=== PATIENT | female | born 1965 | race Caucasian/White ===

== ENCOUNTER 2017-01-11 09:50 | Inpatient (IN) | payer BC, OTHER ==
[2017-01-08 18:17] VITALS: BMI 25.1
[2017-01-11] VITALS (25 sets, daily range): BP systolic 84–129; BP diastolic 51–78; PULSE 65–84; RESP 12–26; Ht 165.1 cm; Wt 68.0 kg
[~2017-01-11] VITALS: Ht 165.1 cm; Wt 68.0 kg
[~2017-01-11 09:50] MED LIST: PROPOFOL 200 MG INJ ONE
[2017-01-11] MEDS ORDERED: BUPR300T48 PO (10:23)
[2017-01-11] MEDS ORDERED: LAMO100T83 PO (10:23)
[2017-01-11] MEDS ORDERED: GABA-526 PO (10:24)
--- NOTE | 2017-01-11 11:09 | RADRPT ---
PROCEDURE: XR Chest. CLINICAL INDICATION: 51-year-old female for preop chest x-ray. TECHNIQUE: Single frontal view of the chest was obtained COMPARISON: No. FINDINGS: There is increased density of the superior lateral chest leyva possibly the result of breast implant s. Clinical correlation needed. The bony elements are normal. The cardiomediastinal silhouette an d hilar structures are normal. The pulmonary vasculature is There is a left-sided aorta. The lungs are clear. The costophrenic angles are normal. IMPRESSION: 1. There is no evidence of active cardiopulmonary disease. RPTAT:AAJJ Physician Gurjit Date Time Electronically viewed and signed by Physician Gurjit on 01/11/2017 11:09 ANGELICA/
[2017-01-11 11:28] LABS: ADD SCAN DIFF NO
[2017-01-11 11:36] LABS: BASOPHILS % 0.3 % (0.0-2.0); EOSINOPHILS # 0.1 10^3/ul (0.0-0.5); EOSINOPHILS % 1.4 % (0.0-7.0); HEMATOCRIT 38.7 % (37.0-47.0); LYMPHOCYTES # 0.9 10^3/ul (0.8-2.9); LYMPHOCYTES % 14.5 % (15.0-51.0); MEAN CORPUSCULAR HEMOGLOBIN 32.5 pg (29.0-33.0); MEAN CORPUSCULAR HGB CONC 33.6 g/dl (32.0-37.0); MEAN CORPUSCULAR VOLUME 96.8 fl (82.0-101.0); MEAN PLATELET VOLUME 8.5 fl (7.4-10.4); MONOCYTE # 0.4 10^3/ul (0.3-0.9); MONOCYTES % 6.2 % (0.0-11.0); NEUTROPHILS % 77.3 % (39.0-77.0); PLATELET COUNT 179 10^3/UL (140-415); RED CELL DISTRIBUTION WIDTH 12.5 % (11.5-14.5); WHITE BLOOD COUNT 6.4 10^3/ul (4.8-10.8)
[2017-01-11 11:43] LABS: INR 1.05; PROTIME 13.7 Sec (12.2-14.2); PT RATIO 1.1
[2017-01-11 11:44] LABS: PARTIAL THROMBOPLASTIN TIME 29.1 Sec (25.0-35.0)
[2017-01-11 11:51] LABS: CALCIUM 9.4 mg/dl (8.4-10.2); CREATININE 0.72 mg/dl (0.44-1.00); POTASSIUM 4.4 mmol/L (3.5-5.1)
[2017-01-11] MEDS: LACTATED RINGER'S 1,000 ML IV SCH (12:30)
[2017-01-11] MEDS ORDERED: MIDAZOLAM 1 MG/ML 2 ML INJ ONE (12:38)
--- NOTE | 2017-01-11 12:55 | HPN ---
Date/Time of Note Date/Time of Note DATE: 01/11/17 TIME: 12:54 Interval H&P Admission Note Pt. seen H&P reviewed: No system changes (Reviewed plan with patient and will continue with plan for left subtalar joint arthrodesis with iliac supriya autograft and allograft, open vs arthroscopic) ADOLFO YE MD Jan 11, 2017 12:55
[2017-01-11] MEDS ORDERED: DIPHENHYDRAMINE 25 MG CAP PO PRN (13:00)
[2017-01-11] MEDS: OXYCODONE/ACETAMINOPHEN (10/325) TAB PO SCH ×3 (13:00→21:16)
[2017-01-11] MEDS ORDERED: CEFAZOLIN 1 GM INJ IV SCH (13:00)
[2017-01-11] MEDS ORDERED: ONDANSETRON 4 MG INJ IV PRN ×2 (13:00→16:00)
--- NOTE | 2017-01-11 13:14 | RADRPT ---
Vent Rate: 67 bpm RR Interval: 0 msec RI Interval: 156 msec QRS Duration: 94 msec QT Interval: 400 msec QTC Interval: 422 msec P-R-T [place]: 60 - 38 - 48 degrees Normal sinus rhythm Normal ECG Electronically Signed By: Roe Patricio [id number]
[2017-01-11] MEDS ORDERED: ROPIVACAINE 0.5 % 30 ML VIAL ONE ×2 (13:24→13:59)
[2017-01-11] MEDS ORDERED: ROCURONIUM 50 MG INJ ONE ×2 (13:59→14:34)
[2017-01-11] MEDS ORDERED: METOCLOPRAMIDE 10 MG INJ ONE (13:59)
[2017-01-11] MEDS ORDERED: KETOROLAC 30 MG INJ ONE (13:59)
[2017-01-11] MEDS ORDERED: PROPOFOL 0 ML ONE (13:59)
[2017-01-11] MEDS: CEFAZOLIN 1 GM/50 ML (PMX) 50 ML IVPB SCH ×2 (14:00→22:16)
[2017-01-11] MEDS ORDERED: CEFAZOLIN 1 GM INJ ONE ×2 (14:18→17:58)
[2017-01-11] MEDS ORDERED: LIDOCAINE 2% (SDV) 5 ML INJ ONE (14:31)
[2017-01-11] MEDS ORDERED: HYDROmorphONE 2 MG/ML SYG ONE (14:32)
[2017-01-11] MEDS ORDERED: HYDROmorphONE (0.2 MG/ML) 10ML SYG IV PRN ×2 (16:00)
[2017-01-11] MEDS ORDERED: DIPHENHYDRAMINE 50 MG INJ IV PRN (16:00)
[2017-01-11] MEDS ORDERED: METOCLOPRAMIDE 10 MG INJ IV PRN (16:00)
[2017-01-11] MEDS ORDERED: OXYCODONE/ACETAMINOPHEN (5/325) TAB PO PRN ×2 (16:00)
[2017-01-11] MEDS ORDERED: MEPERIDINE 25 MG INJ IV PRN (16:00)
[2017-01-11] MEDS ORDERED: MEPERIDINE 100 MG INJ ONE (17:03)
[2017-01-11] MEDS ORDERED: NEOMYC/POLYMYX/BACIT 30 GM OINT ONE (18:11)
[2017-01-11] MEDS ORDERED: ROPIVACAINE 0.2% 20 ML VIAL ONE (18:23)
[2017-01-11] MEDS ORDERED: GLYCOPYRROLATE 0.4 MG INJ ONE (18:30)
[2017-01-11] MEDS ORDERED: NEOSTIGMINE 3 MG/3 ML SYRINGE ONE (18:30)
[2017-01-11] MEDS: HYDROmorphONE (0.2 MG/ML) 10ML SYG IV PRN ×2 (19:20→19:42)
[2017-01-11] MEDS: DOCUSATE SODIUM 100 MG CAP PO SCH (21:16)
--- NOTE | 2017-01-11 23:21 | RADRPT ---
PROCEDURE: Intraoperative fluoroscopy. CLINICAL INDICATION: Intraoperative fluoroscopy during left ankle surgery. TECHNIQUE: 7 spot intraoperative fluoroscopic images were provided. The images were reviewed on a high-resolution PACS workstation. COMPARISON: None available FINDINGS: Multiple spot intraoperative fluoroscopic views were provided during left ankle surgery. The images demonstrate placement of calcaneal cortical screws traversing the subtalar joints with tips in the talus. The total fluoroscopy time was 0.7 minutes. IMPRESSION: 1. Multiple spot intraoperative fluoroscopic views during left foot surgery were provided. 2. Please see operative report of the same day for further information. RPTAT: HGAS .Sreekanth Wright MD, MD Date Time Electronically viewed and signed by .Sreekanth Wright MD, on 01/11/2017 23:21 .S/
[2017-01-12] MEDS: OXYCODONE/ACETAMINOPHEN (10/325) TAB PO SCH ×4 (00:29→12:24)
[2017-01-12] MEDS: LACTATED RINGER'S 1,000 ML IV SCH ×2 (01:50→15:10)
[2017-01-12] MEDS: HYDROmorphONE 1 MG/ML SYG IV PRN ×3 (02:14→09:45)
[2017-01-12] MEDS: CEFAZOLIN 1 GM/50 ML (PMX) 50 ML IVPB SCH ×3 (06:28→22:00)
[2017-01-12] MEDS: DOCUSATE SODIUM 100 MG CAP PO SCH ×2 (08:25→20:40)
[2017-01-12 08:55] VITALS: BP 110/53; PULSE 65; RESP 20
[2017-01-12 08:56] VITALS: BP 110/53; RESP 20
--- NOTE | 2017-01-12 13:11 | PN ---
Date/Time of Note Date/Time of Note DATE: 01/12/17 TIME: 13:11 Assessment/Plan Lines/Catheters IV Catheter Type (from Nrsg): Peripheral IV Avalos in Place (from Nrsg): No Assessment/Plan Assessment/Plan POD #1 s/p Left subtalar arthrodesis with allograft - NWB to the LLE - PT to GT - PO and IV pain meds - likely dc home tomorrow - xarleto, scds, teds for dvt prophx E Dionne SHAW Subjective 24 Hr Interval Summary Pain is very high today. no f/c/n/v Constitutional: improved Feeding: advancing diet Pain Control: severe Exam/Review of Systems Vital Signs Vitals Vital Signs Date Time Temp Pulse Resp B/P Pulse Ox O2 Delivery O2 Flow Rate FiO2 01/13/17 07:00 98.9 80 18 126/71 95 01/12/17 08:55 Room Air 01/11/17 19:57 2.0 Intake and Output 01/13/17 01/13/17 01/14/17 15:00 23:00 07:00 Intake Total 1140 ml Output Total 800 ml Balance 340 ml Exam Constitutional: alert, oriented, well developed Musculoskeletal: other (LLE/ toes wiggle, splint intact, silt to m/l/d/p/fdws, cr brisk, toes wwp) Results Result Diagram: 01/11/17 1113 01/11/17 1113 ADOLFO YE MD Jan 12, 2017 13:11
[2017-01-12] MEDS ORDERED: HYDROmorphONE 2 MG/ML SYG IV STA (13:25)
[2017-01-12] MEDS ORDERED: oxyCODONE (CR) 20 MG TAB [oxyCONTIN] PO SCH (13:30)
[2017-01-12] MEDS: oxyCODONE (CR) 20 MG TAB [oxyCONTIN] PO SCH (16:56)
[2017-01-12] MEDS: RIVAROXABAN 10 MG TABLET PO SCH (18:23)
[2017-01-12] MEDS: oxyCODONE 15 MG TAB PO PRN ×2 (19:16→23:13)
[2017-01-12 19:55] VITALS: BP 128/65; RESP 20
[2017-01-12] MEDS ORDERED: DIAZEPAM 5 MG TAB PO PRN (20:30)
[2017-01-12] MEDS: HYDROmorphONE 2 MG/ML SYG IM PRN (20:40)
[2017-01-12] MEDS ORDERED: GABAPENTIN 100 MG CAP PO SCH (21:00)
[2017-01-13] MEDS: HYDROmorphONE 2 MG/ML SYG IM PRN ×3 (00:13→07:26)
[2017-01-13] MEDS: oxyCODONE (CR) 20 MG TAB [oxyCONTIN] PO SCH ×2 (01:39→09:31)
[2017-01-13] MEDS: LACTATED RINGER'S 1,000 ML IV SCH (04:30)
[2017-01-13] MEDS: CEFAZOLIN 1 GM/50 ML (PMX) 50 ML IVPB SCH (06:00)
[2017-01-13] MEDS: oxyCODONE 15 MG TAB PO PRN ×2 (06:12→11:02)
[2017-01-13 07:00] VITALS: BP 126/71; RESP 18
[2017-01-13] MEDS ORDERED: HYDROmorphONE 2 MG/ML SYG IM PRN (08:30)
[2017-01-13] MEDS: DOCUSATE SODIUM 100 MG CAP PO SCH (09:30)
[2017-01-13] MEDS: GABAPENTIN 100 MG CAP PO SCH ×2 (09:31→13:43)
--- NOTE | 2017-01-13 13:27 | DS ---
Date/Time of Note Date/Time of Note DATE: 01/13/17 TIME: 13:27 Discharge Summary Admission/Discharge Info Admit Date/Time Jan 12, 2017 at 15:15 Discharge Date/Time 01/13/17 Final Diagnosis Left subtalar post traumatic arthritis Patient Condition: Good Hospital Course Patient was admitted status post left arthroscopic subtalar joint arthrodesis. Her pain improved over the course of her hospital stay and on day of discharge she was neurovascularly intact with her pain improved and well controlled. Home Meds Active Scripts Gabapentin* (Gabapentin*) 100 Mg Capsule, 300 MG PO TID for 30 Days, #60 CAP Prov:ADOLFO YE MD 01/13/17 Reported Medications Lamotrigine* (Lamictal*) 100 Mg Tablet, 100 MG PO DAILY, TAB 01/11/17 Bupropion Hcl* (Wellbutrin XL*) 300 Mg Tab.sr.24h, 300 MG PO DAILY, TAB.SA 01/11/17 Discontinued Reported Medications Gabapentin* (Gabapentin*) 600 Mg Tablet, 600 MG PO QID, #60 TAB 01/11/17 Follow-up Plan 1 week with ADOLFO Riojas MD Jan 13, 2017 13:27
--- NOTE | 2017-01-13 13:27 | PN ---
Date/Time of Note Date/Time of Note DATE: 01/13/17 TIME: 13:26 Assessment/Plan Lines/Catheters IV Catheter Type (from Nrsg): Peripheral IV Avalos in Place (from Nrsg): No Assessment/Plan Assessment/Plan POD #2 s/p Left subtalar arthrodesis with allograft - NWB to the LLE - PT to GT - PO and IV pain meds - likely dc home today - xarleto, scds, teds for dvt prophx E Dionne SHAW Subjective 24 Hr Interval Summary Doing much better today with improved pain control. No f/c/n/v Constitutional: no complaints Feeding: advancing diet Pain Control: well controlled Exam/Review of Systems Vital Signs Vitals Vital Signs Date Time Temp Pulse Resp B/P Pulse Ox O2 Delivery O2 Flow Rate FiO2 01/13/17 07:00 98.9 80 18 126/71 95 01/12/17 08:55 Room Air 01/11/17 19:57 2.0 Intake and Output 01/13/17 01/13/17 01/14/17 15:00 23:00 07:00 Intake Total 1140 ml Output Total 800 ml Balance 340 ml Exam Constitutional: alert, oriented, well developed Musculoskeletal: other (LLE/ toes wiggle, splint intact, silt to m/l/d/p/fdws, cr brisk, toes wwp) Results Result Diagram: 01/11/17 1113 01/11/17 1113 ADOLFO YE MD Jan 13, 2017 13:26
--- NOTE | 2017-01-13 13:27 | PDOCDIS ---
Discharge Instructions CONDITION Patient Condition: Good HOME CARE INSTRUCTIONS: Diet Instructions: Regular ACTIVITY: Activity Restrictions: Rest between Activity Avoid heavy lifting Do not Drive Avoid Heavy Housework No Weight Bearing Bathing Restrictions: Sponge BathActivity Restrictions Comment: Please keep left leg dressing dry ADOLFO YE MD Jan 13, 2017 13:27
[2017-01-13] MEDS ORDERED: GABA100C14 PO (13:28)
[2017-01-13] MEDS: RIVAROXABAN 10 MG TABLET PO SCH (13:43)
--- NOTE | 2017-01-18 18:22 | QN ---
Documentation Job number: [id number] ADOLFO YE MD Jan 18, 2017 18:22
--- NOTE | 2017-01-18 22:38 | OPR ---
DATE OF OPERATION: 01/12/2017 PREOPERATIVE DIAGNOSIS: Left subtalar joint, posttraumatic osteoarthritis. POSTOPERATIVE DIAGNOSIS: Left subtalar joint, posttraumatic arthritis. OPERATION PERFORMED: 1. Left subtalar joint arthrodesis arthroscopically with allograft. 2. Application of short leg splint. 3. Use of fluoroscopy. SURGEON: Adolfo Truong MD FISH SALTER: David Truong MD ANESTHESIA: General with regional block anesthesia. ANESTHESIOLOGIST: Please see chart. TOURNIQUET TIME: 142 minutes at 250 mmHg. ESTIMATED BLOOD LOSS: Minimal. SPECIMENS: None. DRAINS: None. COMPLICATIONS: None. INDICATIONS AND PROCEDURE: The patient is a 51-year-old female who sustained the calcaneus fracture several years ago that has now developed into posttraumatic arthritis with significant pain and def ormity. The patient had a CT scan, which confirmed arthritis, and given increase in pain and lack o f the resolution with anti-inflammatories, the patient was indicated for surgery. RISK NOTE: The patient was explained risks and benefits of surgery in the patient's [place] language including, but not limited to infection, bleeding, loss of limb, loss of life, need for future surg sanchez, risk of injury to blood vessels, nerves, ligaments, or tendons. The patient acknowledges risks and signed the surgical consent form. DESCRIPTION OF PROCEDURE: The patient was marked in the preoperative holding area, and the operativ e extremity was confirmed with extremity on both consent and with patient. The patient was given pr eoperative regional anesthesia. The patient was then brought back in the operative theater and plac ed supine on operating table, given preoperative regional block and antibiotics. The patient was th en prepped with the left leg in the thigh draper and a nonsterile tourniquet placed. All bony promi nences were well padded. The patient was prepped and draped in normal sterile fashion. Time-out wa s taken and all parties in the room agreed correct patient, correct extremity, correct procedure. S uperficial peroneal nerve had been marked out preoperatively and distraction of approximately 20 deg astrid taken across the joint. The subtalar joint was initially entered to the standard central poste rior lateral and anterior lateral portals. Subtalar joint with extensive osteoarthritis with marked osteoarthritis. The arthritis and scar tissue was debrided extensively and then the bone and the c artilaginous layer was debrided with a shaver and a sonia. Spot welds were made throughout the subta lar joint. After the osteochondral bone was exposed and the subtalar joint was adequately denuded, using the large Vector guide two 6.5 screws were placed across the joint that were partially threade d Arthrex screws for compression. The ArthroCell allograft was used to pack the site of the arthrod esis and then once the ArthroCell was packed to the arthrodesis site, screws were compressed, achiev ed formal compression. Prior to the last screw being placed, the Vector guide was placed after a sm all incision was made just medial to the tibialis anterior to find the exact spot for the screw to b e placed along the talar body. Once this site was found, a K wire was placed followed by the cannul ated screw. Compression was shown to be well achieved in both the AP, lateral, and oblique planes. Extremities were washed out and portal sites were closed with a 4-0 vertical mattress and then the medial incision was closed with 3-0 Monocryl followed by 4-0 nylon in vertical mattress. All bony p rominences were well-padded and a short leg splint was placed after Xeroform, 4x4's, ABDs and a well -padded short leg splint. All sponge and needle counts were correct. Dictated By: ADOLFO STORM/NTS Conf#: [id number] DID#: [id number]
== END 2017-01-13 14:30 | disposition home or self-care (01) | DRG 505 ==
LOC: SDS 09:50 → REC 15:59 → MS1 20:05 → OBSVTOIN 01-12 15:15
PROVIDERS: ADMIT Orthopaedic Surgery; ATTEND Orthopaedic Surgery
PROC: 0SG Lower Joints, Fusion (ICD-10-PCS; 2017-01-11)
PROC: 0SG Lower Joints, Fusion (ICD-10-PCS; principal; 2017-01-11 13:00)
DX: M19.172 Post-traumatic osteoarthritis, left ankle and foot (principal)
CPT/HCPCS: 71010; 73610; 80048; 82306; 85025; 85610; 85730; 93005; 97116; 97530; 99217; C1713; G0378; J0690; J1170; J1885; J2175; J2250; J2405; J2710; J2765; J2795; J7120